=== PATIENT | female | born 1960 | race Caucasian/White ===

== ENCOUNTER 2017-05-28 09:28 | Outpatient (CLI) | payer BC | END 2017-05-28 18:44 | disposition home or self-care (01) | LOC: SMA 09:28 | DX: Z12.31 Encounter for screening mammogram for malignant neoplasm of breast (principal); N64.89 Other specified disorders of breast | CPT/HCPCS: 77067 ==

== ENCOUNTER 2017-08-05 09:45 | Outpatient (CLI) | payer BC | END 2017-08-05 20:19 | disposition home or self-care (01) | LOC: SMA 09:45 | DX: R92.8 Other abnormal and inconclusive findings on diagnostic imaging of breast (principal) | CPT/HCPCS: 76642; 77065 ==

== ENCOUNTER 2018-08-20 08:59 | Outpatient (CLI) | payer BC | END 2018-08-20 20:12 | disposition home or self-care (01) | LOC: SMA 08:59 | DX: Z12.31 Encounter for screening mammogram for malignant neoplasm of breast (principal) | CPT/HCPCS: 77067 ==

== ENCOUNTER 2019-11-07 08:10 | Outpatient (CLI) | payer OTHER | END 2019-11-07 19:49 | disposition home or self-care (01) | LOC: SMA 08:10 | DX: Z12.31 Encounter for screening mammogram for malignant neoplasm of breast (principal) | CPT/HCPCS: 77067 ==